=== PATIENT | female | born 1980 | race Caucasian/White ===

== ENCOUNTER 2019-10-05 17:49 | Emergency (ER) | payer BC, SELFPAY ==
[2019-10-05 17:50] VITALS: BP 154/105; PULSE 89; RESP 15; TEMP 36.6; O2SAT 97; BMI 49.5
--- NOTE | 2019-10-05 18:11 | ED.VIS.GEN ---
History of Present Illness Chief Complaint: Sore Throat Informant: Patient Onset: Yesterday Current Severity: Moderate Maximum Severity: Moderate Narrative: Patient presents secondary to sore throat. She states she gets strep a couple times a year this feels similar. She woke yesterday morning with sore throat and pain with swallowing. She denies fever or chills. She has had minimal cough. Past Medical History - Allergies and Home Meds Allergies/Adverse Reactions: Allergies Penicillins Allergy (Verified 10/05/19 17:50) Rash Prior records reviewed: Yes Past Medical History: - - Frequent strep throat Smoking Status: Current every day smoker Review of Systems General: Denies: Chills, Fever Eyes: Denies: Visual changes - bilaterally ENT: Reports: Sore throat. Denies: Bilateral ear pain Cardiovascular: Denies: Chest pain Respiratory: Denies: Dyspnea, Cough Gastrointestinal: Denies: Abdominal pain, Nausea, Vomiting, Diarrhea Genitourinary: Denies: Dysuria Musculoskeletal: Denies: Extremity Pain Skin: Denies: Rash Neurological: Denies: Headache Endocrine: Denies: Polyuria, Polydipsia Allergy: Denies: Uticaria Physical Exam Vital Signs/Narrative: Vital Signs Temp Pulse Resp BP Pulse Ox 10/05/19 17:50 97.8 F 89 15 154/105 H 97 Inital Vital Signs reviewed: Yes General: Well nourished, Well developed Head: Normocephalic, Atraumatic Eyes: Perrl, EOMI ENT: TM's clear, - - 3+ tonsils bilaterally. No exudate noted. Uvula midline. Patient is tolerating secretions and speaks in a strong voice. Neck: Supple, - - Bilateral anterior cervical lymphadenopathy. Cardiovascular: Regular rate, Regular rhythm Respiratory: No distress, CTA bilaterally Abdomen: Soft, Nontender Back: Nontender Extremities: Nontender Skin: Normal color Neurological: Alert, Oriented x3 Diagnostic/Tx/Re-eval - Medical Decision Making Patient has history of similar symptoms with positive strep results at that time. She will be treated with antibiotics on this presentation. She will be given a single dose of Decadron to help with swelling. She will be referred to ENT for follow-up. ED Disposition - Plan for ED Patient: Disposition: Home or Assisted Living Diagnosis: Pharyngitis Instructions: ED Strep Pharyngitis Poss Prescriptions: Azithromycin [Zithromax] 250 mg PO DAILY #4 tab Transmission Status: Pending to [id number] [facility] Referrals: Fabien Pollock MD [STAFF PHYSICIAN] - As Needed
[2019-10-05] MEDS: dexAMETHasone 4 MG Tablet 10 MG PO (18:34)
[2019-10-05] MEDS: Azithromycin 250 MG Tablet 500 MG PO (18:35)
== END 2019-10-05 18:39 | disposition home or self-care (01) ==
PROVIDERS: Emergency Provider Emergency Medicine
DX: J02.9 Acute pharyngitis, unspecified (principal); F17.200 Nicotine dependence, unspecified, uncomplicated; Z88.0 Allergy status to penicillin
CPT/HCPCS: 99283